=== PATIENT | female | born 1990 | race Caucasian/White ===

== ENCOUNTER 2016-05-17 00:30 | Inpatient (IN) | payer BC ==
--- NOTE | ~2016-05-17 | HP ---
Unit #: [id number] #: [id number] Patient: KELVIN HOOPER [id number] [place] [address] [id number] MR#: [id number] NAME: KELVIN HOOPER. ROOM: P173 Age: 25 Sex: F Admission Date: 05/17/2016 : 1990 Attending Physician: Jad Mendoza M.D. Admitting Physician: Jad Mendoza M.D. Primary Care Physician: Surendra Kern M.D. HISTORY AND PHYSICAL HISTORY OF PRESENT ILLNESS Kelvin is a 25 year old admitted to [facility] because of her continued drug use. She shoots heroin. PAST MEDICAL HISTORY Long history of opioid abuse to include IV heroin. PAST SURGICAL HISTORY Nothing reported. ALLERGIES No known drug allergies. SOCIAL HISTORY Smokes 1/2 pack per day. Drinks alcohol on occasion. Admits to a long history of illicit substance abuse to include IV amphetamines and heroin. FAMILY HISTORY Medically noncontributory. REVIEW OF SYSTEMS CONSTITUTIONAL: No fever or chills. HEENT: Denies any sore throat, ear pain or runny nose. CARDIOVASCULAR: Denies chest pain, irregular heart rhythm or palpitations. CHEST: Denies shortness of breath or cough. No hemoptysis. GASTROINTESTINAL: Denies nausea, vomiting, diarrhea or chronic constipation. ENDOCRINE: Denies history of increased thirst or urination. No recent significant weight loss or gain. GENITOURINARY: Denies dysuria, frequency, or hematuria. SKIN: Denies any rashes. HEMATOLOGIC: Denies history of increased bleeding or bruising. MUSCULOSKELETAL: Denies any hot, swollen joints. No generalized muscle pain. NEUROLOGIC: Denies problems with vision or speech. No frequent, severe headaches. No numbness, tingling or weakness in any extremities. Denies loss of bladder or bowel control. CURRENT MEDICATIONS Detox protocol. PHYSICAL EXAMINATION GENERAL: Alert, well-nourished, in no apparent distress. Unit #: [id number] #: [id number] Patient: KELVIN HOOPER VITAL SIGNS: Blood pressure 100/60, heart rate 64, respirations 16, temperature 98.6. WEIGHT: 170. HEIGHT: 5 feet 3 inches. SKIN: Warm and dry without rash or lesion. HEENT: Normocephalic. TMs not viewed. Oral and nasal passages clear. Conjunctivae clear. PERRLA. EOMs intact. NECK: Supple without lymphadenopathy or thyromegaly. HEART: Regular rate and rhythm without murmur. LUNGS: Clear. ABDOMEN: Soft, nontender. : Not done. EXTREMITIES: No evidence of cyanosis, clubbing or edema. Moves all without focal deficit. NEUROLOGICAL: Grossly within normal limits. Cranial Nerves: II: Visual cortez are intact. III, IV AND : Extraocular movements are intact. Pupils are equal, round and reactive to light. V: Facial sensation is grossly normal. VII: Facial movements and expression are normal. VIII: Auditory acuity grossly intact. IX, X: Uvula is midline. Phonation is normal. XI: Patient shrugs shoulders and turns head normally. XII: Tongue protrudes in the midline. Sensory and Motor Function: Sensory and motor sensation is grossly normal. Motor: moves all extremities well. Coordination: Gait is normal. Deep Tendon Reflexes: Intact. IMPRESSION Psychiatric admission. RECOMMENDATIONS PSYCHIATRIC: Per psychiatrist. MEDICAL: See no contraindications to participate in facility's activities. MEDICAL PROGNOSIS Good. MEDICAL CONDITION Stable. Dictated by... Alla Moura P.A.-C. for Kymberly Silva/harsha TD: 05/17/2016 21:20 JOB #: [id number] Unit #: [id number] #: [id number] Patient: KELVIN HOOPER HISTORY AND PHYSICAL X Alla Moura X HISTORY AND PHYSICAL
--- NOTE | ~2016-05-17 | PN ---
Unit #: [id number] #: [id number] Patient: KELVIN HOOPER [id number] [facility] [address] [place] [address] [id number] I MR#: [id number] NAME: KELVIN HOOPER ROOM: P173 Age: 25 Sex: F Admission Date: 05/17/2016 : 1990 Attending Physician: Jad Mendoza M.D. Admitting Physician: Jad Mendoza M.D. Primary Care Physician: Kymberly Casey PROGRESS NOTES DATE 05/18/2016 DISCUSSION The patient continues to report significant physical distress related to opiate withdrawal. We continue current treatment and I have encouraged her to increase her participation within the therapeutic milieu. Dictated by... Jad Mendoza M.D. CB/harsha TD: 05/18/2016 15:10 JOB #: [id number] DWAYNE PROGRESS NOTES X Jad Mendoza MD PROGRESS NOTE
--- NOTE | ~2016-05-17 | PA ---
Unit #: [id number] #: [id number] Patient: KELVIN HOOPER [id number] [place] [address] [id number] MR#: [id number] NAME: KELVIN HOOPER. ROOM: P173 Age: 25 Sex: F Admission Date: 05/17/2016 : 1990 Date of Assessment: 05/17/2016 Attending Physician: Jad Mendoza M.D. Admitting Physician: Jad Mendoza M.D. Primary Care Physician: Surendra Kern M.D. PSYCHIATRIC ASSESSMENT IDENTIFYING INFORMATION The patient is a 25-year-old white female admitted for opioid detox. INFORMANT(S) Chart, patient cannot be aroused for interview. CHIEF COMPLAINT None given. HISTORY OF PRESENT ILLNESS The patient is a 25-year-old white female with a history of intravenous heroin use as well as abuse of methamphetamine and Xanax. The patient had been initially referred to outpatient programming but did not comply with that recommendation. She returned yesterday with a COW score of 15 and was admitted to the hospital. The patient reports that she lost her job 3 days ago. She has been living with her parents and 2 children. CPS has been involved in the patient's case given her drug addiction. She is currently denying suicidal or homicidal ideation and no psychotic symptoms are reported. No prior chemical dependence treatment has been reported. PAST PSYCHIATRIC HISTORY None. FAMILY HISTORY Noncontributory. SOCIAL HISTORY The patient lives with her parents. She is the mother of 2 out of wedlock children. She reports substance use as noted previously and is a smoker. MEDICAL HISTORY Noncontributory. MEDICATION HISTORY None. ALLERGIES None. MENTAL STATUS EXAM At this time, reveals the patient to be a well-developed, well-nourished white female. She is dressed comfortably and multiple attempts to arouse her are delgado unsuccessful. Unit #: [id number] #: [id number] Patient: KELVIN HOOPER ASSETS AND LIABILITIES Patient's assets, supportive family, housing. Liabilities to be assessed. ADMITTING DIAGNOSES 1. Opioid use disorder. 2. Methamphetamine use disorder. 3. Sedative/hypnotic use disorder. 4. Elevated liver enzymes. PSYCHIATRIC PLAN/TREATMENT GOALS The patient remains hospitalized for safety and stabilization. Routine detoxification protocol for opioids has been initiated. The patient will participate in appropriate sullivan and milieu activities. ESTIMATED LENGTH OF STAY Three to five days. Dictated by... Jad Mendoza M.D. SELVIN/harsha TD: 05/17/2016 15:44 JOB #: [id number] PSYCHIATRIC ASSESSMENT X Jad Mendoza MD X PSYCHIATRIC ASSESSMENT
--- NOTE | ~2016-05-17 | DS ---
Unit #: [id number] #: [id number] Patient: KELVIN HOOPER [id number] [place] [address] [id number] I MR#: [id number] NAME: KELVIN HOOPER. ROOM: P173 Age: 25 Sex: F Admission Date: 05/17/2016 : 1990 Discharge Date: 05/20/2016 Attending Physician: Jad Mendoza M.D. Primary Care Physician: Surendra Kern M.D. DISCHARGE SUMMARY REASON FOR ADMISSION The patient is a 25-year-old white female, admitted to the [facility] with a history of intravenous heroin dependence. HOSPITAL COURSE The patient was admitted to the [facility] unit and placed on routine detoxification protocol for opioids. Her stay in the hospital was a brief and uneventful one with her detox progressing smoothly. By 05/20/2016, the patient requested discharge citing a wish to go to "[place]." Discharge was ordered. FINAL DIAGNOSES Opioid use disorder, methamphetamine use disorder, and sedative hypnotic use disorder. DISPOSITION ON DISCHARGE The patient is discharged on no psychotropic or other medications. FOLLOWUP Followup will take place through the auspices of community mental health resources. PROGNOSIS Her prognosis is considered fair. Dictated by... Jad Mendoza M.D. CB/bryan TD: 05/21/2016 01:47 JOB #: [id number] DISCHARGE SUMMARY X Jad Mendoza MD X DISCHARGE SUMMARY
[2016-05-17 09:50] LABS: BASOPHIL# 0.1 X10e3 (0-0.3); BASOPHIL% 0.8 % (0-2.5); EOSINOPHIL# 0.1 X10e3 (0-0.7); EOSINOPHIL% 1.8 % (0.0-7.0); HEMATOCRIT 40.1 % (35.0-45.0); HEMOGLOBIN 13.5 gm/dL (12.0-16.0); LYMPHOCYTE# 3.2 X10e3 (1.0-3.5); LYMPHOCYTE% 37.3 % (17.0-45.0); MEAN CELL VOLUME 86.3 FL (83-96); MEAN CORPUSCULAR HGB CONC 33.5 g/dL (30-36); MEAN PLATELET VOLUME 8.9 FL (6.5-11.5); MONOCYTE# 0.9 X10e3 (0-1.0); MONOCYTE% 10.9 % (3.0-12.0); NEUTROPHIL# 4.2 X10e3 (1.5-7.1); NEUTROPHIL% 49.2 % (40-75); PLATELET COUNT 317 X10e3 (140-420); RED BLOOD COUNT 4.65 X10e (3.90-5.30); RED CELL DISTRIBUTION WIDTH 13.3 % (11.0-15.5); WHITE BLOOD COUNT 8.5 X10e3 (4.0-10.5)
[2016-05-17 09:54] LABS: DIFF IND NO
[2016-05-17 10:37] LABS: ALBUMIN SERUM 3.6 g/dL (3.5-5.0); ALKALINE PHOSPHATASE 82 U/L (32-92); ALT (SGPT) 175 U/L (10-40); AST (SGOT) 171 U/L (10-42); BILIRUBIN,TOTAL 0.6 mg/dL (0.2-2.0); BLOOD UREA NITROGEN 21 mg/dL (9-23); CALCIUM SERUM 9.3 mg/dL (8.4-10.2); CARBON DIOXIDE 25 mmol/L (22-31); CHLORIDE 108 mmol/L (100-111); CREATININE SERUM 0.7 mg/dL (0.6-1.4); GLOM FILT RATE Estimated ABOVE60 mL/min (>60); GLUCOSE FASTING 87 mg/dL (70-110); PROTEIN TOTAL SERUM 7.2 g/dL (6.0-8.3); SODIUM 144 mmol/L (135-145)
[2016-05-17 14:07] LABS: THYROID STIMULATING HORMONE 0.15 uIU/ml (0.34-5.60)
[2016-05-17 14:14] LABS: FREE THYROXIN (T4) 0.81 ng/dL (0.58-1.64)
[2016-05-18 10:11] LABS: URINE APPEARANCE CLOUDY; URINE BLOOD NEG (NEG); URINE COLOR YELLOW; URINE GLUCOSE NORM (NORM); URINE KETONE NEG (NEG); URINE LEUKOCYTE ESTERASE 3+ (NEG); URINE NITRATE NEG (NEG); URINE PROTEIN 1+ (NEG); URINE SPECIFIC GRAVITY 1.015 (1.003-1.035); URINE UROBILINOGEN NORM (NORM)
[2016-05-18 10:15] LABS: URINE BILIRUBIN NEG (NEG)
[2016-05-18 10:36] LABS: AMPHETAMINE POS (NEG); BARBITURATES NEG (NEG); BENZODIAZEPINES POS (NEG); COCAINE POS (NEG); MARIJUANA POS (NEG); OPIATES POS (NEG); TRICYCLIC ANTIDEPRESSANTS NEG (NEG); U METHADONE NEG (NEG)
[2016-05-18 11:07] LABS: URINE CRYSTALS CALCIUM OXALATE /[HPF]; URINE MUCUS PRESENT; URINE SQUAMOUS EPITHELIAL CELL FEW /[HPF]
[2016-05-18 11:08] LABS: URBCS1 AUWI 0-2 /[HPF] (0-2)
[2016-05-18 11:09] LABS: URINE BACTERIA AUWI NEG (NEGATIVE)
[2016-05-22 11:38] LABS: HA AB IGM (HEPPAN) Nonreactive (Nonreactive); HB CORE AB IGM (HEPPAN) Nonreactive (Nonreactive); HB S AG (HEPPAN) Nonreactive (Nonreactive); HEP C AB (HEPPAN) Reactive (Nonreactive)
== END 2016-05-20 14:45 | disposition home or self-care (01) | DRG 897 ==
LOC: P1E 00:30
PROVIDERS: Specialist
PROC: HZ2ZZZZ Detoxification Services for Substance Abuse Treatment (ICD-10-PCS; principal; 2016-05-17)
DX: F11.10 Opioid abuse, uncomplicated (principal); F13.10 Sedative, hypnotic or anxiolytic abuse, uncomplicated; F15.10 Other stimulant abuse, uncomplicated; F17.200 Nicotine dependence, unspecified, uncomplicated
CPT/HCPCS: 80053; 80074; 80307; 81003; 84439; 84443; 84703; 85025; 86592; 87522; 87806; 90688